=== PATIENT | male | born 1970 | race Caucasian/White ===

== ENCOUNTER 2019-01-13 15:35 | Emergency (ER) | payer OTHER, SELFPAY ==
[~2019-01-13] VITALS: Ht 175.3 cm; Wt 104.5 kg
[2019-01-13 15:35] VITALS: BP 136/87
[2019-01-13] MEDS ORDERED: HYDR25OIN TOP (16:57)
[2019-01-13] MEDS ORDERED: CLAR10CA3 PO (16:57)
== END 2019-01-13 17:12 | disposition home or self-care (01) ==
LOC: M ED 15:35
DX: S00.06XA Insect bite (nonvenomous) of scalp, initial encounter (principal); W57.XXXA Bitten or stung by nonvenomous insect and other nonvenomous arthropods, initial encounter; Y92.9 Unspecified place or not applicable; Y93.9 Activity, unspecified; Y99.9 Unspecified external cause status